=== PATIENT | female | born 1945 | race Caucasian/White ===

== ENCOUNTER 2020-11-12 08:45 | Day surgery (SDC) | payer OTHER ==
[2020-11-10 16:31] LABS: Absolute Lymphocytes (CBC) 2.1 K/uL (0.7-4.9); Basophils % 0.7 % (0-1.3); Hematocrit 39.8 % (36.0-45.0); Lymphocytes % 29.2 % (15.3-44.8); MPV 7.6 fL (7.6-11.3); RBC Red Blood Cell Count 4.23 M/uL (3.86-4.86)
--- NOTE | 2020-11-10 16:43 | RAD REPORT ---
EXAM DESCRIPTION: RAD - Chest Pa And Lat (2 Views) - 11/10/2020 4:12 pm CLINICAL HISTORY: preop, pending cholecystectomy COMPARISON: None TECHNIQUE: Frontal and lateral views of the chest were obtained. FINDINGS: The lungs are clear of an acute infiltrate or mass. No acute failure or volume overload. L ja markings are increased in each base believed to be the affects of prominent overlying soft tissue . Defibrillator is in place. Heart size is normal and central vasculature is within normal limits. N o pleural effusion or pneumothorax seen. No acute bony finding noted. No aortic abnormality. IMPRESSION: No acute cardiopulmonary process.
[2020-11-10 16:45] LABS: Albumin 3.7 g/dL (3.4-5.0); Bilirubin Direct 0.1 mg/dL (0-0.2); Bilirubin Total 0.4 mg/dL (0.2-1.0); Potassium 3.7 mmol/L (3.5-5.1)
--- NOTE | 2020-11-11 12:39 | EKG ---
Test Date: 2020-11-10 Test Time: 14:55:17 Publishing Director: CHASE MEASUREMENT RESULTS: Intervals: Rate: 65 AL: 154 QRSD: 154 QT: 466 QTc: 484 Marion: P: 61 AL: 154 QRS: 113 T: 14 INTERPRETIVE STATEMENTS: Normal sinus rhythm Right axis deviation Nonspecific intraventricular block Abnormal ECG No previous ECG available for comparison Electronically Signed On 11-11-20 12:37:40 CDT by Asim Vasquez
[2020-11-12] MEDS ORDERED: CEFOXITIN/SWI 1gm 1 GM/10 ML SYR ONE (09:24)
[2020-11-12] MEDS ORDERED: Ringers Lactate 1,000 ML IV ONE (09:24)
[2020-11-12] MEDS: BUPIVACAINE 0.5% PF 10 ML VIAL ONE ×2 (10:53→11:55)
[2020-11-12] MEDS ORDERED: MIDAZOLAM HCL 2 MG/2 ML INJ ONE (11:12)
[2020-11-12] MEDS ORDERED: ONDANSETRON 4 MG/2 ML VIAL ONE (11:12)
[2020-11-12] MEDS ORDERED: dexAMETHasone 10 MG/ML VIAL ONE (11:12)
[2020-11-12] MEDS ORDERED: ROCURONIUM 50 MG/5 ML VIAL IV ONE (11:12)
[2020-11-12] MEDS ORDERED: FENTANYL CITR 100 MCG/2 ML ONE (11:12)
[2020-11-12] MEDS ORDERED: LIDOCAINE 2% MPF 5 ML VIAL ONE (11:12)
[2020-11-12] MEDS ORDERED: propofoL 200 MG/20 ML VIAL IV ONE (11:12)
--- NOTE | 2020-11-12 11:56 | P.BOP ---
Preoperative diagnosis: Acute cholecystitis, symptomatic cholelithiasis Postoperative diagnosis: SAME Primary procedure: Laparoscopic Cholecystectomy Boat Engine Mechanic: NOLA REYNOLDS (NURSE OBGYN) Estimated blood loss: <10cc Specimen: gb Findings: as above Anesthesia: General Complications: None Transferred to: Recovery Room Condition: Good
[2020-11-12] MEDS ORDERED: Phenylephrine HCl 10 MG/ML 1 ML VIAL ONE (11:59)
[2020-11-12] MEDS ORDERED: KETOROLAC 30 MG/ML INJ ONE (12:10)
[2020-11-12] MEDS ORDERED: GLYCOPYRROLATE 0.2 MG/ML SYR ONE (12:16)
[2020-11-12] MEDS ORDERED: NEOSTIGMINE 1 MG/ML -5 ML ONE (12:22)
[2020-11-12] MEDS: MORPHINE 4 MG/ML SYR ONE ×2 (12:28→12:39)
--- NOTE | 2020-11-12 12:52 | OP ---
Date of Procedure: 11/12/2020 Surgeon: Rick Anaya MD Saas Architect: Nuris Valero. Preoperative Diagnoses: Acute cholecystitis symptomatic cholelithiasis. Postoperative Diagnoses: Acute cholecystitis symptomatic cholelithiasis. Procedure: Laparoscopic cholecystectomy. Estimated Blood Loss: Less than 10 mL. Specimen: Gallbladder. Anesthesia: General plus local. Indication: This is the case of a female, who comes to us with acute abdominal pain, symptomatic cho lelithiasis. Fully explained the benefits, alternatives, and risks of laparoscopic possible open cho lecystectomy, which include, but not limited to infection, bleeding, damage to adjacent structures, a nesthesia complication, choledocholithiasis, bile leak, pancreatitis, [place], and even . She also u nderstands this may not relieve any symptoms. She might need more than one surgical intervention. S he understood, signed a consent. Procedure In Detail: The patient was brought to the operating room, placed in supine position. Anes thesia was done without complication. Abdominal area was prepped and draped in usual sterile fashion . Marcaine 0.5% was injected for local anesthetic followed by sharp incision of skin in the supraumb ilical region. The incision was carried down to fascia, which was opened under direct vision. Perit oneum was encountered and opened under direct vision. Vicryl #1 placed inside the fascia. Virgil tr ocar was carefully introduced. Pneumoperitoneum was obtained. I placed 3 more trocars, 5 mm each on e of them in the epigastric right upper quadrant area using same technique under direct visualization . Grasper placed in the fundus of the gallbladder and another grasper in the infundibulum retracting the gallbladder in the inferolateral fashion, exposing the triangle of Calot, obtaining critical vie w. The cystic duct and cystic artery were clearly isolated, free circumferentially and a connection between those and the gallbladder were clearly identified. I proceeded to ligate those by using at l east 3 clips proximal, 1 clip distal, ligation in middle. Same was done with the cystic artery. The gallbladder was removed from liver using Bovie cauterizer and removed from abdominal cavity using En doCatch through the umbilical incision. The area was inspected once again, no bile leak, no bleeding . The clips were intact, no bile leak, no bleeding. At that moment, I proceeded to remove the troca rs under direct vision. Deflated pneumoperitoneum, closed the fascia with #1 Vicryl. Irrigated the subcutaneous tissue, closed that with 3-0 chromic and skin with harry. Sponge count and instrument counts correct. The patient tolerated the procedure well. The patient was sent to recovery in stab le condition. RUIZ/ARELI Voice ID: [id number] Report ID: [id number]
--- NOTE | 2020-11-12 12:52 | DS ---
Diagnoses: Acute cholecystitis, symptomatic cholelithiasis. Procedure: Laparoscopic cholecystectomy. Disposition: Home. Activity: As tolerated. No heavy lifting. Plan: Follow up in office in 1 week. Call for appointment at [phone]. Keep area dry for 48 hours, then may shower. Medications: Include Tylenol No.3 q.4 hours p.r.n., Bactrim DS p.o. b.i.d. RUIZ/ARELI Voice ID: [id number] Report ID: [id number]
[2020-11-12 13:12] VITALS: BP 140/69; TEMP 97; O2SAT 94
[2020-11-12] MEDS ORDERED: CODEINE 30MG/APAP 300MG TAB ONE (13:53)
== END 2020-11-12 13:50 | disposition home or self-care (01) ==
LOC: OR 08:45
PROVIDERS: ATTEND Surgery
PROC: 0FT44ZZ Resection of Gallbladder, Percutaneous Endoscopic Approach (ICD-10-PCS; principal; 2020-11-12 10:00)
DX: K80.12 Calculus of gallbladder with acute and chronic cholecystitis without obstruction (principal); Z20.822 Contact with and (suspected) exposure to COVID-19
CPT/HCPCS: 93005; 85025; 80048; 36415; 82150; 80076; 88304; 83690; 71046; 47562; U0003; J2704; J2370; J2250; J3010; J1100; J2710; J7120; J2405

== ENCOUNTER 2021-06-07 20:52 | Emergency (ER) | payer OTHER ==
--- OUTSIDE RECORDS SUMMARY | 2021-06-07 20:56 | XMS REPORT | Continuity of Care Document ---
:1945 Author Organization [facility] t Address [address] [place] [address] [place] [id number] Care Team Providers Name Role Phone Evelin-Mary_A_AH Attending Clinician Unavailable Evelin-Mary_A_AH Admitting Clinician Unavailable Payers Payer Name Policy Type Policy Number Effective Date Expiration Date S our[facility], located within [facility] [place] - [id number] [address] 00:00:00 (MEDICARE REPLACEMENT/ADVANT AGE - HMO) Problems This patient has no known problems. Allergies, Adverse Reactions, Alerts This patient has no known allergies or adverse reactions. Medications This patient has no known medications. Procedures This patient has no known procedures. Encounters Start End Encounter Admission Attending Care Care Encounter Source Date/Time Date/Time Type Type Clinicians Facility Department ID 2019-06-06 2019-06-06 Outpatient Elvira [facility] [phone] [facility] 07:28:00 07:28:00 _A_MERARI [id number] Family Practic e Results This patient has no known results.
[2021-06-07] MEDS ORDERED: METHYLPREDNISOLONE 125 MG INJ ONE (22:06)
[2021-06-07] MEDS ORDERED: ALBUTEROL INHALER 60 PUFF/8 GM IH ONE (22:08)
[2021-06-07 22:33] LABS: Absolute Lymphocytes (CBC) 2.4 K/uL (0.7-4.9); Hematocrit 40.7 % (36.0-45.0); Lymphocytes % 35.6 % (15.3-44.8); MPV 7.7 fL (7.6-11.3); RBC Red Blood Cell Count 4.33 M/uL (3.86-4.86)
[2021-06-07 22:47] LABS: Albumin 3.3 g/dL (3.4-5.0); Bilirubin Direct 0.1 mg/dL (0-0.2); Bilirubin Total 0.5 mg/dL (0.2-1.0); Protein, Total 6.9 g/dL (6.4-8.2); Troponin High Sensitivity 15.4 pg/mL (<58.9)
[2021-06-07 22:52] LABS: Magnesium 2.3 mg/dL (1.8-2.4); Potassium 3.8 mmol/L (3.5-5.1)
[2021-06-07 22:56] LABS: Protime INR 1.04
--- NOTE | 2021-06-08 01:02 | ER ---
Nurse's Notes [facility] Name: Beatriz Dhaliwal Age: 76 yrs Sex: Female : 1945 Arrival Date: 06/07/2021 Time: 21:00 Bed 19 Private MD: Cm Pham R Diagnosis: SARS-associated coronavirus as the cause of diseases classified elsewhere Presentation: 06/07 21:19 Chief complaint: Patient states: congestion, weakness, and decreased appetite for 1 sm5 week. Coronavirus screen: Vaccine status: Patient reports being unvaccinated. Ebola Screen: No symptoms or risks identified at this time. Initial Sepsis Screen: Does the patient meet any 2 criteria? No. Patient's initial sepsis screen is negative. Does the patient have a suspected source of infection? No. Patient's initial sepsis screen is negative. Risk Assessment: Do you want to hurt yourself or someone else? Patient reports no desire to harm self or others. Onset of symptoms was May 31, 2021. 21:19 Method Of Arrival: Wheelchair [facility] 21:19 Acuity: SIMON 3 sm5 Triage Assessment: 21:20 General: Appears in no apparent distress. Behavior is cooperative. Pain: Denies pain. sm5 Respiratory: Reports cough that is congestion Onset: The symptoms/episode began/occurred 1 week, the patient has mild shortness of breath. Historical: - Allergies: 21:20 No Known Allergies; sm5 - PMHx: 21:20 Congestive heart failure; Pacemaker/Defibrillator; sm5 - Immunization history:: Client reports having NOT received the Covid vaccine. Flu vaccine is not up to date. - Social history:: Smoking status: Patient denies any tobacco usage or history of. Screenin:00 Abuse screen: Denies threats or abuse. Denies injuries from another. Nutritional tk1 screening: No deficits noted. Tuberculosis screening: No symptoms or risk factors identified. Fall Risk None identified. Assessment: 22:00 General: Appears comfortable, uncomfortable, obese, well groomed, well developed, well tk1 nourished, Behavior is calm, cooperative, appropriate for age. Pain: Denies pain. Neuro: Level of Consciousness is awake, alert, obeys commands, Oriented to person, place, time, situation, Appropriate for age Labor Service Representative are equal bilaterally Moves all extremities. Gait is steady, Speech is normal, Facial symmetry appears normal, Reports. Cardiovascular: Reports shortness of breath, Denies chest pain, Heart tones S1 S2 Capillary refill < 3 seconds is brisk in bilateral fingers Clubbing of nail beds is absent Rhythm is Respiratory: Airway is patent Trachea midline Respiratory effort is even, unlabored, Respiratory pattern is regular, symmetrical, Breath sounds with wheezes bilaterally. the patient has mild shortness of breath. Respiratory: Reports shortness of breath on exertion cough that is productive. GI: No deficits noted. : No signs and/or symptoms were reported regarding the genitourinary system. EENT: No deficits noted. No signs and/or symptoms were reported regarding the EENT system. Derm: No deficits noted. No signs and/or symptoms reported regarding the dermatologic system. Musculoskeletal: No deficits noted. No signs and/or symptoms reported regarding the musculoskeletal system. 23:00 Reassessment: No changes from previously documented assessment. Patient and/or family tk1 updated on plan of care and expected duration. Pain level reassessed. Patient is alert, oriented x 3, equal unlabored respirations, skin warm/dry/pink. Patient denies pain at this time. 06/08 00:08 Reassessment: Patient ambulated to restroom to void. Tolerated well. tk1 01:32 Reassessment: D/C per MD order. Discharge/Prescription instructions given to patient tk1 and granddaughter. Verbalized understanding. Vital Signs: 06/07 21:19 BP 105 / 76; Pulse 77; Resp 20; Temp 99(O); Pulse Ox 98% on R/A; Weight 86.18 kg; sm5 Height 5 ft. 0 in. (152.40 cm); 22:00 BP 101 / 61 LA Supine (auto/reg); Pulse 64 MON; Resp 18 S; Temp 98.8(O); Pulse Ox 97% tk1 on R/A; Pain 0/10; 23:00 BP 101 / 63 LA Supine (auto/reg); Pulse 64 MON; Resp 17; Temp 98.3(O); Pulse Ox 96% on tk1 R/A; Pain 0/10; 06/08 00:00 BP 108 / 70 LA Supine (auto/reg); Pulse 67 MON; Resp 18; Pulse Ox 96% ; Pain 0/10; tk1 00:00 BP 108 / 45 LA Supine (auto/reg); Pulse 64 MON; Resp 16; Temp 98.8(O); Pulse Ox 97% on tk1 R/A; Pain 0/10; 06/07 21:19 Body Mass Index 37.11 (86.18 kg, 152.40 cm) [facility] Vitals: 06/07 22:00 Cardiac Rhythm Assessment Paced. tk1 23:00 Cardiac Rhythm Assessment Paced. tk1 [place] Coma Score: 22:00 Eye Response: spontaneous(4). Verbal Response: oriented(5). Motor Response: obeys tk1 commands(6). Total: 15. ED Course: 21:00 Patient arrived in ED. es 21:01 Cm Pham MD is Private Physician. es 21:19 [facility] jr8 21:19 Spencer Guzmán MD is Attending Physician. jr8 21:20 Triage completed. 5 21:21 Arm band placed on right wrist. 5 21:59 Altagracia Dennis is Primary Nurse. tk1 22:00 Patient has correct armband on for positive identification. Bed in low position. Call tk1 light in reach. Side rails up X2. Adult w/ patient. monitor technician on. Pulse ox on. NIBP on. Warm blanket given. 22:00 Troponin HS Sent. tk1 22:00 PT-INR Sent. tk1 22:00 NT PRO-BNP Sent. tk1 22:00 Magnesium Sent. tk1 22:00 LFT's Sent. tk1 22:00 CBC with Diff Sent. tk1 22:00 No provider procedures requiring assistance completed. Inserted saline lock: 20 gauge tk1 in right hand, using aseptic technique. Blood collected. Patient maintains SpO2 saturation greater than 95% on room air. 22:01 Basic Metabolic Panel Sent. tk1 22:01 SARS-COV-2 RT PCR (Document "Date of Onset" if Symptomatic) Sent. tk1 22:01 Basic Metabolic Panel Sent. tk1 22:31 XRAY Chest (1 view) In Process Unspecified. EDMS 06/08 01:01 Cm Pham MD is Referral Physician. jr8 01:32 IV discontinued, intact, bleeding controlled, No redness/swelling at site. Pressure tk1 dressing applied. Administered Medications: 06/07 22:19 Drug: Albuterol HFA Inhaler 2 puffs Route: Inhalation; tk1 22:20 Drug: SOLU-Medrol (methylPrednisoLONE) 125 mg Route: IVP; Rate: bolus; Infused Over: 2 tk1 mins; Site: right hand; 06/08 01:36 Follow up: Response: No adverse reaction tk1 Outcome: 01:02 Discharge ordered by MD. chen 01:32 Discharged to home ambulatory, with family. tk1 01:32 Condition: stable 01:32 Discharge instructions given to patient, family, Instructed on discharge instructions, follow up and referral plans. medication usage, Demonstrated understanding of instructions, follow-up care, medications. 01:36 Patient left the ED. tk1 Signatures: Dispatcher [employer] EDNelly Pollard Josh, PA PA jr8 Portia Pope RN RN sm5 Altagracia Dennis tk1 Corrections: (The following items were deleted from the chart) 01:35 01:00 BP 108 / 70 Supine Auto L Arm Regular; Pulse 67bpm; MonitorResp 18bpm; Pulse Ox tk1 96%; Pain 0/10; tk1
--- NOTE | 2021-06-08 01:02 | EDPHYS ---
Physician Documentation [facility] Name: Beatriz Dhaliwal Age: 76 yrs Sex: Female : 1945 Arrival Date: 06/07/2021 Time: 21:00 Bed 19 Private MD: Cm Pham R ED Physician Spencer Guzmán HPI: 06/07 22:17 This 76 yrs old Female presents to ER via Wheelchair with complaints of Chest jr8 Congestion, Decreased Appetite, Breathing Difficulty. 22:17 The patient or guardian reports cough, that is intermittent, described as moderate, jr8 with productive sputum, that is white. Onset: The symptoms/episode began/occurred gradually, 1 week(s) ago. Severity of symptoms: At their worst the symptoms were moderate, in the emergency department the symptoms are unchanged. Modifying factors: The symptoms are alleviated by nothing, the symptoms are aggravated by exertion. Associated signs and symptoms: Pertinent positives: decreased appetite and shortness of breath with exertion . The patient has not experienced similar symptoms in the past. The patient has not recently seen a physician. Historical: - Allergies: 21:20 No Known Allergies; sm5 - PMHx: 21:20 Congestive heart failure; Pacemaker/Defibrillator; sm5 - Immunization history:: Client reports having NOT received the Covid vaccine. Flu vaccine is not up to date. - Social history:: Smoking status: Patient denies any tobacco usage or history of. ROS: 22:17 Constitutional: Negative for fever, chills, and weight loss, Eyes: Negative for injury, jr8 pain, redness, and discharge, ENT: Negative for injury, pain, and discharge, Neck: Negative for injury, pain, and swelling, Cardiovascular: Negative for chest pain, palpitations, and edema, Abdomen/GI: Negative for abdominal pain, nausea, vomiting, diarrhea, and constipation, Back: Negative for injury and pain, MS/Extremity: Negative for injury and deformity, Skin: Negative for injury, rash, and discoloration, Neuro: Negative for headache, weakness, numbness, tingling, and seizure. 22:17 Respiratory: Positive for cough, dyspnea on exertion, wheezing. Exam: 22:17 Eyes: Pupils equal round and reactive to light, extra-ocular motions intact. Lids and jr8 lashes normal. Conjunctiva and sclera are non-icteric and not injected. Cornea within normal limits. Periorbital areas with no swelling, redness, or edema. ENT: Nares patent. No nasal discharge, no septal abnormalities noted. Tympanic membranes are normal and external auditory canals are clear. Oropharynx with no redness, swelling, or masses, exudates, or evidence of obstruction, uvula midline. Mucous membranes moist. Neck: Trachea midline, no thyromegaly or masses palpated, and no cervical lymphadenopathy. Supple, full range of motion without nuchal rigidity, or vertebral point tenderness. No Meningismus. Cardiovascular: Regular rate and rhythm with a normal S1 and S2. No gallops, murmurs, or rubs. Normal PMI, no JVD. No pulse deficits. Abdomen/GI: Soft, non-tender, with normal bowel sounds. No distension or tympany. No guarding or rebound. No evidence of tenderness throughout. Back: No spinal tenderness. No costovertebral tenderness. Full range of motion. Skin: Warm, dry with normal turgor. Normal color with no rashes, no lesions, and no evidence of cellulitis. MS/ Extremity: Pulses equal, no cyanosis. Neurovascular intact. Full, normal range of motion. Neuro: Awake and alert, GCS 15, oriented to person, place, time, and situation. Cranial nerves II-XII grossly intact. Motor strength 5/5 in all extremities. Sensory grossly intact. 22:17 Respiratory: the patient does not display signs of respiratory distress, Respirations: normal, Breath sounds: wheezing: expiratory that is mild, is heard in the left posterior upper lobe and right posterior upper lobe. Vital Signs: 21:19 BP 105 / 76; Pulse 77; Resp 20; Temp 99(O); Pulse Ox 98% on R/A; Weight 86.18 kg; sm5 Height 5 ft. 0 in. (152.40 cm); 22:00 BP 101 / 61 LA Supine (auto/reg); Pulse 64 MON; Resp 18 S; Temp 98.8(O); Pulse Ox 97% tk1 on R/A; Pain 0/10; 23:00 BP 101 / 63 LA Supine (auto/reg); Pulse 64 MON; Resp 17; Temp 98.3(O); Pulse Ox 96% on tk1 R/A; Pain 0/10; 06/08 00:00 BP 108 / 70 LA Supine (auto/reg); Pulse 67 MON; Resp 18; Pulse Ox 96% ; Pain 0/10; tk1 00:00 BP 108 / 45 LA Supine (auto/reg); Pulse 64 MON; Resp 16; Temp 98.8(O); Pulse Ox 97% on tk1 R/A; Pain 0/10; 06/07 21:19 Body Mass Index 37.11 (86.18 kg, 152.40 cm) sm5 [place] Coma Score: 06/07 22:00 Eye Response: spontaneous(4). Verbal Response: oriented(5). Motor Response: obeys tk1 commands(6). Total: 15. MDM: 21:19 Patient medically screened. 06/08 01:01 Data reviewed: vital signs, nurses notes, lab test result(s), radiologic studies, plain jr8 films. Data interpreted: Pulse oximetry: on room air is 96 %. Interpretation: normal. Counseling: I had a detailed discussion with the patient and/or guardian regarding: the historical points, exam findings, and any diagnostic results supporting the discharge/admit diagnosis, lab results, radiology results, the need for outpatient follow up, a family practitioner, to return to the emergency department if symptoms worsen or persist or if there are any questions or concerns that arise at home. Response to treatment: the patient's symptoms have markedly improved after treatment. 06/07 21:52 Order name: Basic Metabolic Panel [facility] 06/07 21:52 Order name: CBC with Diff; Complete Time: 23: [facility] 06/07 21:52 Order name: LFT's; Complete Time: 23: 06/07 21:52 Order name: Magnesium; Complete Time: 23:06/07 21:52 Order name: NT PRO-BNP; Complete Time: 23:06/07 21:52 Order name: PT-INR; Complete Time: 23: 06/07 21:52 Order name: Troponin HS; Complete Time: 23:22 06/07 21:52 Order name: XRAY Chest (1 view) [facility] 06/07 21:52 Order name: EKG; Complete Time: 21:53 06/07 21:52 Order name: Cardiac monitoring; Complete Time: 22:06/07 21:52 Order name: SARS-COV-2 RT PCR (Document "Date of Onset" if Symptomatic); Complete Time: jr8 23:06/07 21:53 Order name: Basic Metabolic Panel; Complete Time: 23: [facility] 06/07 21:52 Order name: EKG - Nurse/Tech; Complete Time: 23:03 jr8 06/07 21:52 Order name: IV Saline Lock; Complete Time: 22:01 jr8 06/07 21:52 Order name: Labs collected and sent; Complete Time: 22: jr8 06/07 21:52 Order name: O2 Per Protocol; Complete Time: 22:00 jr8 06/07 21:52 Order name: O2 Sat Monitoring; Complete Time: 22:00 jr8 Administered Medications: 06/07 22:19 Drug: Albuterol HFA Inhaler 2 puffs Route: Inhalation; tk1 22:20 Drug: SOLU-Medrol (methylPrednisoLONE) 125 mg Route: IVP; Rate: bolus; Infused Over: 2 tk1 mins; Site: right hand; 06/08 01:36 Follow up: Response: No adverse reaction tk1 Disposition: 02:43 Co-signature as Attending Physician, Spencer Guzmán MD I agree with the assessment and kdr plan of care. Disposition Summary: 06/08/21 01:02 Discharge Ordered Location: Home [facility] Problem: new jr8 Symptoms: have improved jr8 Condition: Stable jr8 Diagnosis - SARS-associated coronavirus as the cause of diseases classified elsewhere jr8 Followup: jr8 - With: Cm Pham MD - When: 1 week - Reason: Recheck today's complaints, Continuance of care, Re-evaluation by your physician Discharge Instructions: - Discharge Summary Sheet jr8 - COVID-19 jr8 Forms: - Medication Reconciliation Form jr8 - Thank You Letter jr8 - Antibiotic Education jr8 - Prescription Opioid Use jr8 Prescriptions: - albuterol sulfate 90 mcg/actuation Inhalation HFA aerosol inhaler - inhale 2 puff by INHALATION route every 4-6 hours As needed; 1 Inhaler; jr8 Refills: 0, Product Selection Permitted - Medrol (Darrion) 4 mg Oral Tablets, Dose Pack - take 1 tablet by ORAL route as directed - follow package instructions; 1 jr8 packet; Refills: 0, Product Selection Permitted Signatures: Dispatcher [employer] Christopher Wrayin, MD MD kdr Yoav Mccoy PA PA jr8 Portia Pope RN RN sm5 Altagracia Dennis tk1
[2021-06-08 01:48] VITALS: BP 108/45; TEMP 98.8; O2SAT 97
--- NOTE | 2021-06-08 07:09 | RAD REPORT ---
EXAM DESCRIPTION: RAD - Chest Single View - 06/07/2021 10:31 pm CLINICAL HISTORY: DYSPNEA COMPARISON: Two view chest 11/10/2020 TECHNIQUE: AP portable chest image was obtained 06/07/2021 10:31 pm . FINDINGS: Interstitial pattern is prominent but not clearly different from the comparison when adjus ting for portable shallow inspiration exam. Defibrillator is in place the. Trachea is in midline. Hea rt and vasculature are normal. No measurable pleural effusion and no pneumothorax. No acute bony abno rmality seen. No acute aortic findings suspected. IMPRESSION: No acute cardiopulmonary process. No significant change from comparison study.
== END 2021-06-08 01:36 | disposition home or self-care (01) ==
LOC: ER 20:52
DX: U07.1 COVID-19 (principal); I50.9 Heart failure, unspecified; Z95.0 Presence of cardiac pacemaker
CPT/HCPCS: 93005; 85025; 80048; 36415; 83735; 85610; 80076; 84484; 83880; 71045; 96374; 99285; U0003; J2930